=== PATIENT | female | born 1995 | race Caucasian/White ===

== ENCOUNTER 2017-05-11 23:15 | Emergency (ER) | payer BC ==
[2017-05-12] MEDS ORDERED: PEPCID PO ONE (01:36)
[2017-05-12] MEDS ORDERED: DECADRON IM STA (01:36)
--- NOTE | 2017-05-12 01:36 | Emergency Department Report ---
HPI - General Chief Complaint: Allergic Reaction Time Seen by Provider: 05/12/17 00:29 - HPI HPI: Patient reports that she has facial swelling 1 hour prior to coming to the emergency room. She also says her upper lip on the right side. [place] numb. Denies any difficulty breathing or shortness of breath. Denies any trouble swallowing. Denies any cough or wheezing. Reports pain to right facial area still at a 10. Patient does not know what she came in contact with that cause allergic reaction. She says she is at work when this happened. Denies any medical problems. Denies any difficulty speaking. Denies any drooling or sore throat. ED Past Medical Hx - Past Medical History Previous Medical History?: Yes Hx Asthma: Yes - Surgical History Past Surgical History?: No - Family History Family history: no significant - Social History Smoking Status: Never Smoker Substance Use Type: Alcohol Other Social History: single - Medications Home Medications: Home Medications Medication Instructions Recorded Confirmed Last Taken Type Cetirizine HCl [ZyrTEC] 10 mg PO QAM #7 capsule 05/12/17 Unknown Rx methylPREDNISolone [Medrol Dose 4 mg PO QAM #1 pack 05/12/17 Unknown Rx Jovanny] ED Review of Systems ROS: Stated complaint: FACE SWELLING Other details as noted in HPI Comment: All other systems reviewed and negative Constitutional: no symptoms reported Eyes: denies: eye pain, eye discharge, vision change ENT: other (right facial swelling and right upper lip numbness). denies: throat pain, dental pain, hearing loss, epistaxis, congestion Respiratory: no symptoms reported Cardiovascular: denies: chest pain, palpitations, edema, syncope Gastrointestinal: denies: abdominal pain, nausea, vomiting, diarrhea Musculoskeletal: denies: back pain, joint swelling, arthralgia, myalgia Skin: pruritus (right facial area and upper lip), other (complaining of allergic reaction to right face and right upper lip) Neurological: numbness (right upper lip). denies: headache, weakness, paresthesias, confusion, abnormal gait Physical Exam - Physical Exam Vital Signs: Vital Signs 05/11/17 23:21 Temperature 97.7 F Pulse Rate 70 Respiratory 20 Rate Blood Pressure 110/76 [Right] O2 Sat by Pulse 100 Oximetry General: This is 21-year-old female well-nourished well-developed in no acute distress Physical Exam: Head: Normocephalic, atraumatic, no abrasion, no bruising and no contusion Mouth: Moist, no pharyngeal erythema or exudate. Uvula is midline and tongue is normal. No peritonsillar abscess. Oral airways patent. Right upper lip with mild swelling and no erythema. Face: Mild swelling noted to right facial area below right eye. Nontender to palpate. Nose: Moist, normal mucosa without any drainage. No frontal or maxillary sinus tenderness Neck: Supple,No Cervical adenopathy, full range of motion and no C-spine tenderness. No swelling or tracheal deviation. No stridor Cardiovascular: S1, S2. Regular rate and rhythm. No murmur. Capillary refill is less then 3 seconds. Lungs: Clear to auscultate bilaterally. No rhonchi, wheezes or rales. No chest wall tenderness. No use of accessory muscle and normal work of breathing MSK: Strength 5/5 in all extremities. No joint deformity or crepitus. Normal inspection. Full range of motion to all extremities Extremities: No clubbing, cyanosis or edema. +2 pulses. No neurovascular compromise Skin: Clean, dry and intact. No rash or lesions. Psych: Normal mood and behavior. ED Course Vital Signs 05/11/17 23:21 Temperature 97.7 F Pulse Rate 70 Respiratory 20 Rate Blood Pressure 110/76 [Right] O2 Sat by Pulse 100 Oximetry - Reevaluation(s) Reevaluation #1: 05/12/17 03:26 Patient given Pepcid 40 mg by mouth and Decadron 10 mg IM and upon reevaluation she said H and is much better but she still have an small amount of numbness to her right upper lip. Facial swelling has subsided. ED Medical Decision Making - Medical Decision Making ED course: Patient arrived to the emergency room complaining of facial swelling and numbness to her right upper lip without any other symptoms. She reports that she thinks she has an allergic reaction to something but she is not aware what she is allergic to because she did not have anything new in her environment. Patient is at work when this happened. Physical findings for mild swelling to facial area, normal oral mucosa, lungs and no deformity or abnormalities in neck. Right upper lip with mild swelling. Patient was given Pepcid 40 mg by mouth and Decadron 10 mg IM. Benadryl limited because of patient's that she is driving herself home. She was served in emergency room with reduction of swelling to right facial area and she voiced that she no longer has itching. Patient is stable with no advancement of allergic reaction. Patient discharged from emergency room with prescription for Medrol Dosepak, Zyrtec and to return to the emergency room if she develops wheezing, cough, stridor, increased swelling of lip and facial area, difficulty breathing or shortness of breath. She wasn't distended discharge diagnosis and treatment plan and discharged home in stable condition. Critical care attestation.: If time is entered above; I have spent that time in minutes in the direct care of this critically ill patient, excluding procedure time. ED Disposition Clinical Impression: Pruritic disorder Minor allergic reaction Qualifiers: Encounter type: initial encounter Qualified Code(s): T78.40XA - Allergy, unspecified, initial encounter Disposition: TO HOME OR SELFCARE Is pt being admited?: No Does the pt Need Aspirin: No Condition: Stable Instructions: Allergies (ED) Additional Instructions: You had a minor allergic reaction follow up with business performance manager or underground utility locator to have skin testing done to see what you're allergic to. Takes Zyrtec and Medrol Dosepak as instructed If symptoms return such as, swelling of the lip, facial area, difficulty speaking in and/or swallowing, cough, wheeze then, shortness of breath chest pain, stridor, neck pain or swelling and swelling of the tongue with increased itching please return to the emergency room HANNA. Prescriptions: Cetirizine HCl [ZyrTEC] 10 mg PO QAM #7 capsule methylPREDNISolone [Medrol Dose Jovanny] 4 mg PO QAM #1 pack Referrals: PRIMARY CAREMD [Primary Care Provider] - 05/13/17 Forms: Work/School Release Form(ED)
[2017-05-12 04:26] VITALS: BP 111/70
== END 2017-05-12 03:45 | disposition home or self-care (01) ==
LOC: ED 23:15
DX: T78.40XA Allergy, unspecified, initial encounter (principal); L29.9 Pruritus, unspecified; J45.909 Unspecified asthma, uncomplicated; Y92.9 Unspecified place or not applicable
CPT/HCPCS: 96372; 99282; J1100

== ENCOUNTER 2017-08-17 11:55 | Emergency (ER) | payer BC, OTHER ==
[2017-08-17 12:02] VITALS: BP 119/58
--- NOTE | 2017-08-17 12:24 | XRay Report ---
RIGHT HAND RADIOGRAPHS INDICATION: Injury. COMPARISON: None similar. FINDINGS: AP, lateral and oblique right hand radiographs demonstrate normal bones, joints and soft tissues. CONCLUSION: No acute radiographic abnormality. Thank you for the opportunity to participate in this patient's care.
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
== END 2017-08-17 13:13 | disposition home or self-care (01) ==
LOC: ED 11:55
DX: S66.812A Strain of other specified muscles, fascia and tendons at wrist and hand level, left hand, initial encounter (principal); S60.221A Contusion of right hand, initial encounter; J45.909 Unspecified asthma, uncomplicated; W50.2XXA Accidental twist by another person, initial encounter; Y93.89 Activity, other specified; Y92.89 Other specified places as the place of occurrence of the external cause; Y99.8 Other external cause status
CPT/HCPCS: 99283